=== PATIENT | male | born 1995 | race African-American/Black ===

== ENCOUNTER 2020-01-10 15:13 | Outpatient (CLI) | payer OTHER, SELFPAY ==
[2020-01-10 16:07] LABS: Basophils Percent Auto 0.6 % (0.2-1.2); Eosinophils Absolute Auto 0.1 K/mm3 (0-0.3); Eosinophils Percent Auto 1.6 % (0-4.4); Hematocrit 46.6 % (42.0-52.0); Hemoglobin 15.7 g/dL (14.0-18.0); Immature Granulocyte Absolute 0.01 K/mm3 (0.00-0.031); Immature Granulocyte Percent A 0.3 % (0-0.5); Lymphocytes Absolute Auto 1.23 K/mm3 (0.9-3.2); Lymphocytes Percent Auto 38.7 % (18.3-44.2); Mean Corpuscular HGB Conc 33.7 g/dl (32-36); Mean Corpuscular Hemoglobin 28.2 pg (26-34); Mean Corpuscular Volume 83.8 fl (80-100); Mean Platelet Volume 11.5 fl (7.4-10.4); Monocytes Absolute Auto 0.2 K/mm3 (0.1-0.6); Monocytes Percent Auto 6.9 % (2.6-8.5); Neutrophils Absolute Auto 1.7 K/mm3 (1.3-6.7); Neutrophils Percent Auto 51.9 % (45.5-73.1); Platelet Count Result 178 k/mm3 (150-375); Red Blood Count 5.56 M/mm3 (4.6-6.20); Red Cell Distribution Width 12.2 % (11.5-14.5); White Blood Count 3.2 K/mm3 (4.5-10.0)
[2020-01-10 17:20] LABS: Alanine Aminotransferase 22 U/L (4-50); Albumin Level 4.9 g/dL (3.5-5.1); Alkaline Phosphatase 100 U/L (38-126); Aspartate Amino Transferase 27 U/L (17-59); Bilirubin,Total 0.6 mg/dL (0.2-1.3); Blood Urea Nitrogen 8 mg/dL (9-20); Calcium 9.4 mg/dL (8.4-10.2); Carbon Dioxide 28 mmol/L (22-30); Estimated Glomerular Filt Rate > 60; Glucose 89 mg/dL (75-110)
[2020-01-10 17:26] LABS: Chloride 102 mmol/L (98-107); Potassium 3.9 mmol/L (3.4-5.0); Sodium 139 mmol/L (137-145)
== END 2020-01-10 15:14 | disposition home or self-care (01) ==
PROVIDERS: PCP Family Medicine; Visit Provider Family Medicine
DX: K29.90 Gastroduodenitis, unspecified, without bleeding (principal); I10 Essential (primary) hypertension
CPT/HCPCS: 36415; 80053; 85025

== ENCOUNTER 2020-02-08 01:57 | Outpatient (CLI) | payer OTHER, SELFPAY ==
[2020-02-08 18:09] LABS: SARS-CoV-2 RNA PCR Negative
== END 2020-02-08 01:58 | disposition home or self-care (01) ==
LOC: ANHCOVIDDT 01:57
PROVIDERS: PCP Family Medicine; Visit Provider Internal Medicine Gastroenterology
DX: Z01.818 Encounter for other preprocedural examination (principal); Z11.59 Encounter for screening for other viral diseases
CPT/HCPCS: 87635; C9803; U0003

== ENCOUNTER 2020-02-11 03:28 | Day surgery (SDC) | payer OTHER, SELFPAY ==
[2020-02-04 13:02] VITALS: BMI 24.1
[2020-02-11 09:32] VITALS: BP 110/63; PULSE 51; RESP 20; TEMP 36.6; O2SAT 100; BMI 22.5
[2020-02-11] MEDS: LACTATED RINGERS 1,000 ML 150 ML IV CONT (09:45)
--- NOTE | 2020-02-11 09:47 | SUR.PREOP ---
pt notified of approx 15 min delay in procedure start time.
--- NOTE | 2020-02-11 09:58 | WPDANESEPPF ---
Anes - Initial Pre Proc Eval Procedure: Operation Date: 02/11/20 10:15 Proposed Procedures p Esophagogastroduodenoscopy - Gregor Peters MD Date/Time: 02/11/20 09:58 Surgeon: Gregor Peters MD Pre Op Diagnosis: EPIGASTRIC PAIN Patient Data Age: 24 Gender: M Height: 5 ft 8 in Weight: 67.3 kg Last Vital Signs Temp 97.8 F 02/11/20 09:32 Pulse 51 L 02/11/20 09:32 Resp 20 02/11/20 09:32 BP 110/63 02/11/20 09:32 Pulse Ox 100 02/11/20 09:32 Allergies Allergy/AdvReac Type Severity Reaction Status Date / Time No Known Allergies Allergy Verified 02/11/20 09:30 Home Medications Medication Instructions Recorded Confirmed Type albuterol sulfate 90 mcg/actuation 1 inhalation INHALATION Q4H PRN 01/10/20 02/04/20 Rx aerosol inhaler #8.5 gm omeprazole 20 mg capsule,delayed 20 mg PO BID #60 cap 01/10/20 02/04/20 Rx release Patient hx anesthesia problems: none Family hx anesthesia problems: none PMFSH Past Medical History Medical History (Updated 01/20/20 @ 10:12 by Gregor Peters MD) Gastritis and duodenitis Helicobacter pylori (H. pylori) Family History Family History (Updated 01/10/20 @ 16:32 by Jacquelyn Resendiz MD) Other Asthma Gastritis Social History Social History (Updated 01/10/20 @ 13:51 by Minerva Snyder) Smoking status: Never smoker Second hand tobacco smoke exposure: No Alcohol intake: never Substance use: never Substance use type: does not use Gender identity (if verbalized by the patient): Male Anes - Eval Final PreProcedure Day of Procedure 02/11/20 09:58 Patient weight: normal Heart: regular rate and rhythm Lungs: clear to auscultation Airway: Mallampati scale class II Neurological: alert and oriented Last oral intake: >/= 8 hours ASA classification: II Emergent: no Anesthetic plan: proceed Anesthesia type and monitoring: general GIVS and standard monitoring Informed Consent: The patient's anesthetic plan and its attendant risks and benefits were discussed with the patient/family/POA. Questions were solicited and answers provided to the satisfaction of the patient/family/POA.
--- NOTE | 2020-02-11 10:36 | WPDHPUPDATE1 ---
History and Physical Update Update Date/Time: 02/11/20 10:36 History and Physical has been reviewed, including an updated exam of the patient. There are NO changes in the patient's condition. Risks, benefits, and alternatives have been discussed and questions answered. Patient agrees to proceed with procedure.
[2020-02-11] MEDS: BENZOCAINE (*SP) 60 ML SPRAY CAN (HURRICAINE) 1 SPRAY MUCOUS MEM (10:41)
[2020-02-11 10:53] VITALS: BP 110/56; PULSE 69; RESP 22; O2SAT 100
[2020-02-11 11:03] VITALS: BP 118/68; PULSE 71; RESP 22; O2SAT 100
[2020-02-11 11:13] VITALS: BP 113/72; PULSE 48; RESP 17; O2SAT 100
== END 2020-02-11 12:20 | disposition home or self-care (01) ==
PROVIDERS: PCP Family Medicine; Visit Provider Internal Medicine Gastroenterology
PROC: 0DJ08ZZ Inspection of Upper Intestinal Tract, Via Natural or Artificial Opening Endoscopic (ICD-10-PCS; CPT 43235; principal; 2020-02-11 10:15)
DX: K29.50 Unspecified chronic gastritis without bleeding (principal)
CPT/HCPCS: 43239; 87081; 88305; J2704; J7120

== ENCOUNTER 2020-05-22 11:42 | Outpatient (CLI) | payer OTHER, SELFPAY | END 2020-05-22 11:43 | disposition home or self-care (01) | LOC: ANHLAB 11:43 | PROVIDERS: PCP Family Medicine; Visit Provider Family Medicine | DX: R63.4 Abnormal weight loss (principal); K52.9 Noninfective gastroenteritis and colitis, unspecified | CPT/HCPCS: 87045; 87046; 87427 ==

== ENCOUNTER 2020-05-29 11:25 | Outpatient (CLI) | payer OTHER, SELFPAY ==
[2020-05-29 12:04] LABS: Basophils Percent Auto 0.8 % (0.2-1.2); Eosinophils Absolute Auto 0.1 K/mm3 (0-0.3); Hematocrit 45.2 % (42.0-52.0); Hemoglobin 15.4 g/dL (14.0-18.0); Lymphocytes Absolute Auto 1.25 K/mm3 (0.9-3.2); Lymphocytes Percent Auto 50.6 % (18.3-44.2); Mean Corpuscular HGB Conc 34.1 g/dl (32-36); Mean Corpuscular Hemoglobin 28.9 pg (26-34); Mean Platelet Volume 11.1 fl (7.4-10.4); Monocytes Absolute Auto 0.2 K/mm3 (0.1-0.6); Monocytes Percent Auto 8.1 % (2.6-8.5); Neutrophils Percent Auto 38.5 % (45.5-73.1); Platelet Count Result 176 k/mm3 (150-375); Red Blood Count 5.32 M/mm3 (4.6-6.20); Red Cell Distribution Width 12.3 % (11.5-14.5); White Blood Count 2.5 K/mm3 (4.5-10.0)
[2020-06-02 21:25] LABS: Tissue Transglutaminase IgG Ab 2 U/mL (<6)
[2020-06-04 10:45] LABS: Tissue Transglutaminase IgA Ab 1 U/mL (<4)
== END 2020-05-29 11:26 | disposition home or self-care (01) ==
LOC: ANHLAB 11:27
PROVIDERS: PCP Family Medicine; Visit Provider Internal Medicine Gastroenterology
DX: R53.83 Other fatigue (principal); R63.4 Abnormal weight loss; K59.00 Constipation, unspecified
CPT/HCPCS: 36415; 83516; 85025

== ENCOUNTER 2020-05-30 11:45 | Outpatient (CLI) | payer OTHER, SELFPAY | END 2020-05-30 11:46 | disposition home or self-care (01) | LOC: ANHLAB 11:58 | PROVIDERS: PCP Family Medicine; Visit Provider Nurse Practitioner Family | DX: R53.83 Other fatigue (principal); R63.4 Abnormal weight loss | CPT/HCPCS: 87177; 87209 ==

== ENCOUNTER 2020-06-16 07:39 | Outpatient (CLI) | payer OTHER, SELFPAY ==
--- NOTE | ~2020-06-16 | CT_ITS ---
EXAMINATION: CT abdomen pelvis w con DATE: 06/16/2020 08:16 INDICATION: Generalized abdominal pain. Constipation. Leukopenia. TECHNIQUE: Computed tomography (CT) of the abdomen and pelvis was performed with 100 cc Omnipaque 350 intravenous contrast. Automated exposure control and iterative reconstruction technique were employe d. Exam dose: 223.25 mGy-cm total exam DLP. COMPARISON: None. FINDINGS: The lung bases are clear. Normal heart size. No pericardial or pleural effusion. The liver, gallbladder, bile ducts appear normal. Spleen measures approximately 12 cm length, within upper limits of normal. No pancreatic mass lesion or calcification or ductal dilatation. No adrenal or renal space-occupying mass lesion is evident. No urinary tract calculus or hydrouretero nephrosis is evident. The urinary bladder is relatively evacuated and unremarkable. No bowel obstruct ion, bowel wall thickening, pneumatosis or intraperitoneal free air is detected. No evidence of appen dicitis. There is a prominent amount of fecal material within the colon. No intraperitoneal free air is detected. Included skeletal structures are unremarkable. IMPRESSION: No significant abnormality Reviewed, dictated and finalized at [facility]. Reviewed, dictated and finalized at location [facility]. [employer] IMPRESSION: No significant abnormality
[2020-06-16 08:51] LABS: Basophils Percent Auto 0.4 % (0.2-1.2); Eosinophils Percent Auto 1.6 % (0-4.4); Hematocrit 42.8 % (42.0-52.0); Hemoglobin 14.5 g/dL (14.0-18.0); Lymphocytes Absolute Auto 1.19 K/mm3 (0.9-3.2); Mean Corpuscular HGB Conc 33.9 g/dl (32-36); Mean Corpuscular Hemoglobin 28.4 pg (26-34); Mean Corpuscular Volume 83.9 fl (80-100); Mean Platelet Volume 10.6 fl (7.4-10.4); Monocytes Absolute Auto 0.2 K/mm3 (0.1-0.6); Monocytes Percent Auto 8.2 % (2.6-8.5); Neutrophils Percent Auto 40.8 % (45.5-73.1); Platelet Count Result 158 k/mm3 (150-375); Red Cell Distribution Width 12.4 % (11.5-14.5); White Blood Count 2.4 K/mm3 (4.5-10.0)
[2020-06-16 11:42] LABS: Iron 75 ug/dL (49-181)
[2020-06-16 11:43] LABS: Alanine Aminotransferase 25 U/L (4-50); Albumin Level 4.8 g/dL (3.5-5.1); Alkaline Phosphatase 89 U/L (38-126); Anion Gap 10 mmol/L (8-16); Aspartate Amino Transferase 29 U/L (17-59); Bilirubin,Total 0.7 mg/dL (0.2-1.3); Blood Urea Nitrogen 10 mg/dL (9-20); Calcium 9.6 mg/dL (8.4-10.2); Carbon Dioxide 29 mmol/L (22-30); Chloride 101 mmol/L (98-107); Estimated Glomerular Filt Rate > 60; Glucose 88 mg/dL (75-110); Lactate Dehydrogenase 315 U/L (313-618); Potassium 4.8 mmol/L (3.4-5.0); Sodium 140 mmol/L (137-145)
[2020-06-16 11:57] LABS: Percent Iron Saturation 23 % (20-50)
[2020-06-16 13:08] LABS: Folic Acid 11.1 ng/mL (2.76->20)
== END 2020-06-16 07:40 | disposition home or self-care (01) ==
PROVIDERS: PCP Family Medicine; Visit Provider Internal Medicine Hematology & Oncology
DX: D72.819 Decreased white blood cell count, unspecified (principal)
CPT/HCPCS: 36415; 74177; 80053; 82607; 82728; 82746; 83540; 83550; 83615; 85025; 86038; 88184; Q9967